=== PATIENT | female | born 1960 | race African-American/Black ===

== ENCOUNTER 2017-02-10 13:51 | Emergency (ER) | payer OTHER ==
[2017-02-10 14:15] VITALS: BMI 34.3
--- NOTE | 2017-02-10 15:44 | PDOC ---
History of Present Illness - General History Source: Patient Exam Limitations: No Limitations - History of Present Illness Travel History: No Initial Comments: 02/10/17 15:43 56y F hx of htn presents with R flank pain x 4 months, pt is s/p laparoscopic cholecystecomy at [facility] in July, In October she developed mintermittent RUQ pain that occasionally comes and goes, usually 1-2 hrs, not associated with food intake, movement, no associted f/c, n/v, chnage in bowel habigs, urinary symptoms. The patient states the pain is unchanged for the past 4 months, but came today because she really wanted to see what is going on . pt denies any cp, sob. <Tariq Newell - Last Filed: 02/10/17 17:55> <Giana Villagran - Last Filed: 02/10/17 17:57> - General Chief Complaint: Pain, Acute Stated Complaint: ABD PAIN Time Seen by Provider: 02/10/17 14:42 Past History - Past Medical History HTN: Yes - Surgical History Cholecystectomy: Yes - Psycho/Social/Smoking Cessation Hx Suicidal Ideation: No Smoking History: Never smoked Hx Alcohol Use: No Drug/Substance Use Hx: No <Tariq Newell - Last Filed: 02/10/17 17:55> <Giana Villagran - Last Filed: 02/10/17 17:57> - Past Medical History Allergies/Adverse Reactions: Allergies Allergy/AdvReac Type Severity Reaction Status Date / Time shrimp Allergy Verified 02/10/17 14:16 Home Medications: Ambulatory Orders Aspirin [ASA -] 81 mg PO DAILY 02/10/17 Lisinopril/Hydrochlorothiazide [Lisinopril-Hctz 10-12.5 mg Tab] 1 each PO DAILY 02/10/17 Metoprolol Tartrate 25 mg PO DAILY 02/10/17 Montelukast Na [Singulair -] 10 mg PO HS 02/10/17 Review of Systems - Review of Systems Able to Perform ROS?: Yes Comments:: 02/10/17 15:55 Constitutional - no reported Fever, Chills, weakness, HEENT: no reported vision changes, sore throat Respiratory: no reported cough, sob, hemoptysis Cardiac: no reported chest pain, palpitations, light headedness, leg swelling Abd/GI: + abd pain, no reported nausea, vomiting, blood per rectum, melena, diarrhea : no reported dysuria, frequency, discharge Musculskelatal - no reported back pain, joint swelling skin - no reported bruising, erythema, rash neurological: no reported headache, numbness, focal weakness, tingling, ataxia, weakness hematologic: no reported anemia, easy bruising, easy bleeding <Reece,Tariq - Last Filed: 02/10/17 17:55> *Physical Exam - Vital Signs Last Vital Signs Temp Pulse Resp BP Pulse Ox 99.0 F 58 L 18 149/105 96 02/10/17 14:12 02/10/17 14:12 02/10/17 14:12 02/10/17 14:12 02/10/17 14:12 - Physical Exam Comments: 02/10/17 15:56 GENERAL: The patient is awake, alert, and fully oriented, Nontoxic - in no acute distress. HEAD: Normocephalic, atraumatic. EYES: extraocular movements intact, sclera anicteric, conjunctiva clear. ENT: Normal voice, Moist mucous membranes. NECK: Normal range of motion, supple LUNGS: Breath sounds equal, clear to auscultation bilaterally. No wheezes, no rhonchi, no rales. HEART: Regular rate and rhythm, normal S1 and S2 without murmur, rub or gallop. ABDOMEN: Soft, nontender, normoactive bowel sounds. No guarding, no rebound. No CVA tenderness EXTREMITIES: Normal range of motion, no edema. No clubbing or cyanosis. No cords, erythema, or tenderness. NEUROLOGICAL: No facial assymetry, Normal speech, PSYCH: Normal mood, normal affect. SKIN: Warm, Dry, normal turgor, <Reece,Tariq - Last Filed: 02/10/17 17:55> - Vital Signs Last Vital Signs Temp Pulse Resp BP Pulse Ox 99.0 F 75 16 132/85 100 02/10/17 14:12 02/10/17 16:11 02/10/17 16:11 02/10/17 16:11 02/10/17 16:11 <Giana Villagran - Last Filed: 02/10/17 17:57> ED Treatment Course - LABORATORY CBC & Chemistry Diagram: 02/10/17 16:09 02/10/17 16:09 <Tariq Newell - Last Filed: 02/10/17 17:55> - LABORATORY CBC & Chemistry Diagram: 02/10/17 16:09 02/10/17 16:09 - ADDITIONAL ORDERS Additional order review: Laboratory Results 02/10/17 02/10/17 02/10/17 16:09 16:09 15:57 Sodium 140 Potassium 4.1 Chloride 104 Carbon Dioxide 29 Anion Gap 7 L BUN 11 Creatinine 0.7 Creat Clearance w eGFR > 60 Random Glucose 90 Calcium 9.3 Total Bilirubin 0.5 Direct Bilirubin 0.1 AST 17 ALT 20 Alkaline Phosphatase 59 Total Protein 7.6 Albumin 3.8 Urine Color Ltyellow Urine Appearance Clear Urine pH 6.0 Ur Specific [place] 1.014 Urine Protein Negative Urine Glucose (UA) Negative Urine Ketones Negative Urine Blood 1+ H Urine Nitrite Negative Urine Bilirubin Negative Urine Urobilinogen Negative Ur Leukocyte Esterase Negative 02/10/17 16:09 RBC 4.51 MCV 89.7 MCHC 34.1 RDW 14.2 MPV 10.0 Neutrophils % 65.1 Lymphocytes % 24.0 Monocytes % 6.8 Eosinophils % 3.5 Basophils % 0.6 - RADIOLOGY Radiograph Interpretation: 02/10/17 17:57 Abdomen US Impression: No suspicious findings on ultrasound imaging through the right upper quadrant in a patient status post cholecystectomy. Reported By: Jesus Stiles MD <Giana Villagran - Last Filed: 02/10/17 17:57> Medical Decision Making - Medical Decision Making 02/10/17 15:56 56y F hx of HTN, presents with RUQ/back pain x 4 months w/o systemic sypmtoms. pts exam reveals no significant tenderness. no signs of obstruction, no focal tendneress to suggest acute infection/process will obtain blood work, ua based on loack of focal tenderness, will likely defer imaging - will reassess 02/10/17 17:53 pts labs unremarkable UA noted for +! hematuria - which she has been told she has had before and she has seen urology and had a negative uroscopy the pts US is negative for acute process the pt is feeling improved no pain currently will dc the pt to fu with her pmd and surgeon return precautions were discussed I discussed the physical exam findings, ancillary test results and final diagnoses with the patient. I answered all of the patient's questions. The patient was satisfied with the care received and felt comfortable with the discharge plan and treatment plan. The patient will call their primary care physician within 24 hours to arrange follow-up and will return to the Emergency Department with any new, persistent or worsening symptoms. <ReeceTariq ann - Last Filed: 02/10/17 17:55> *DC/Admit/Observation/Transfer - Discharge Dispostion Admit: No <Tariq Newell - Last Filed: 02/10/17 17:55> <Giana Villagran - Last Filed: 02/10/17 17:57> Diagnosis at time of Disposition: Abdominal pain Qualifiers: Abdominal location: right upper quadrant Qualified Code(s): R10.11 - Right upper quadrant pain - Discharge Dispostion Disposition: HOME Condition at time of disposition: Improved - Referrals Referrals: Tyron Centeno [Primary Care Provider] - - Patient Instructions Printed Discharge Instructions: DI for Abdominal Pain-Adult Additional Instructions: Return to the emergency department immediately with ANY new, persistent or worsening symptoms including worsening abdominal pain, fevers, inability to tolerate oral intake, chest pain, shortness of breath or any other concerns. Stay well hydrated. You MUST call and follow up with your doctor tomorrow. Your emergency department visit is not complete without a followup with your doctor for reevaluation. Please make sure your doctor reviews the results of your emergency evaluation. Print Language: MAORI
[2017-02-10 16:42] LABS: URINE APPEARANCE CLEAR; URINE BILIRUBIN NEGATIVE (NEGATIVE); URINE COLOR LTYELLOW; URINE GLUCOSE (UA) NEGATIVE (NEGATIVE); URINE KETONE NEGATIVE (NEGATIVE); URINE LEUK ESTERASE NEGATIVE (NEGATIVE); URINE NITRITE NEGATIVE (NEGATIVE); URINE PROTEIN NEGATIVE (NEGATIVE); URINE UROBILINOGEN NEGATIVE E.U./dl (0.2-1.0)
[2017-02-10 16:43] LABS: BASOPHIL 0.6 % (0-2.0); EOSINOPHIL 3.5 % (0-4.5); MCH 30.6 pg (25.7-33.7); MCHC 34.1 g/dl (32.0-36.0); MEAN CELL VOLUME 89.7 fl (80-96); NEUTROPHILS 65.1 % (42.8-82.8); PLATELET COUNT 159 K/MM3 (134-434); RDW 14.2 % (11.6-15.6); WHITE BLOOD COUNT 7.4 K/mm3 (4.0-10.0)
[2017-02-10 17:22] LABS: ALBUMIN 3.8 g/dl (3.4-5.0); ANION GAP 7 (8-16); BILIRUBIN,TOTAL 0.5 mg/dL (0.2-1.0); CALCIUM 9.3 mg/dL (8.5-10.1); CO2 29 mmol/L (21-32); COCKROFT - GAULT 131.5715; CREATININE 0.7 mg/dL (0.55-1.02); GLUCOSE,RANDOM 90 mg/dL (74-106); SGPT/ALT 20 U/L (12-78); TOT PROT 7.6 g/dl (6.4-8.2)
[2017-02-10 17:24] LABS: ALK PHOS 59 U/L (45-117)
[2017-02-10 17:26] LABS: SGOT/AST 17 U/L (15-37)
[2017-02-10 17:32] LABS: URINE BLOOD 1+ (NEGATIVE)
[2017-02-10 17:42] LABS: URINE MUCUS RARE; URINE RBC 4 /hpf (0-3); URINE WBC <1 /hpf (3-5)
[2017-02-10 18:12] VITALS: BP 146/79; PULSE 61; TEMP 98
== END 2017-02-10 18:12 | disposition home or self-care (01) ==
LOC: JER 13:51
DX: R10.11 Right upper quadrant pain (principal); I10 Essential (primary) hypertension; Z79.82 Long term (current) use of aspirin
CPT/HCPCS: 36415; 76705-TC; 80053; 81003; 81015; 82248; 85025; 99283-25

== ENCOUNTER 2024-04-22 15:40 | Emergency (ER) | payer OTHER ==
[2024-04-22 15:49] VITALS: RESP 18; BMI 32.3
[2024-04-22 16:54] LABS: BASO % 0.2 % (0-2.0); EOS % 0.1 % (0-4.5); HEMOGLOBIN 14.1 GM/dL (10.7-15.3); LYMPH % 6.2 % (8-40); MCH 30.5 pg (25.7-33.7); MCHC 34.3 g/dl (32.0-36.0); MEAN CELL VOLUME 88.7 fl (80-96); MEAN PLT VOLUME 8.5 fl (7.5-11.1); MONO % 8.6 % (3.8-10.2); NEUT % 84.9 % (42.8-82.8); PLATELET COUNT 158 10^3/uL (134-434); RBC 4.63 M/mm3 (3.60-5.2); RDW 14.9 % (11.6-15.6); WHITE BLOOD COUNT 16.9 K/mm3 (4.0-10.0)
[2024-04-22] MEDS ORDERED: DEXAMETHASONE SOD PHOSPHATE 10 MG/1 ML VIAL ONE (17:03)
[2024-04-22] MEDS: DEXAMETHASONE SOD PHOSPHATE 10 MG/1 ML VIAL IVPUSH ONE (17:08)
[2024-04-22] MEDS: DEXAMETHASONE SOD PHOSPHATE 10 MG/1 ML VIAL IM ONE (17:08)
[2024-04-22 17:13] LABS: POTASSIUM 3.3 mmol/L (3.5-5.1)
[2024-04-22 17:15] LABS: ALBUMIN 3.6 g/dl (3.4-5.0); BLOOD UREA NITROGEN 23.6 mg/dL (7-18); CALCIUM 9.5 mg/dL (8.5-10.1)
[2024-04-22 17:18] LABS: CREATININE 1.4 mg/dL (0.55-1.3)
[2024-04-22 17:20] LABS: BILIRUBIN,TOTAL 1.3 mg/dL (0.2-1); TOT PROT 8.1 g/dl (6.4-8.2)
[2024-04-22] MEDS ORDERED: CEFTRIAXONE 1 GM/50 ML BAG ONE (17:56)
[2024-04-22] MEDS: SODIUM CHLORIDE 0.9% 500 ML INFUS.BAG IV ONE (18:42)
[2024-04-22] MEDS: CEFTRIAXONE 1,000 MG in DEXTROSE 5%-WATER - 50 ML IVPB ONE (18:43)
[2024-04-22 18:58] VITALS: BP 140/83; PULSE 70; TEMP 97.4
[2024-04-22] MEDS ORDERED: PENICILLIN G BENZATHINE 1,200,000 UNIT/2 ML PFS IM ONE (20:19)
[2024-04-22] MEDS: PENICILLIN G BENZATHINE 1,200,000 UNIT/2 ML PFS IM ONE (20:46)
== END 2024-04-22 21:02 | disposition home or self-care (01) ==
LOC: JERFT 15:40
PROC: 3E03329 Introduction of Other Anti-infective into Peripheral Vein, Percutaneous Approach (ICD-10-PCS; principal; 2024-04-22)
PROC: 3E033GC Introduction of Other Therapeutic Substance into Peripheral Vein, Percutaneous Approach (ICD-10-PCS; 2024-04-22)
PROC: 3E02329 Introduction of Other Anti-infective into Muscle, Percutaneous Approach (ICD-10-PCS; 2024-04-22)
DX: J03.90 Acute tonsillitis, unspecified (principal); E86.0 Dehydration; R94.4 Abnormal results of kidney function studies; M54.2 Cervicalgia; Z20.822 Contact with and (suspected) exposure to COVID-19
CPT/HCPCS: 0241U-QW; 36415; 70491-TC; 80053; 83605; 85025; 87651; 99285-25; J1100